=== PATIENT | female | born 1950 | race Caucasian/White ===

== ENCOUNTER 2016-09-29 17:29 | Inpatient (IN) ==
[2016-09-29 17:52] LABS: BASOPHILS # (AUTO) 0.1 K/uL (0-0.2); BASOPHILS % (AUTO) 0.4 % (0.0-3.0); EOSINOPHILS # (AUTO) 0.3 K/ul (0.0-0.7); EOSINOPHILS % (AUTO) 2.1 % (0.0-7.0); HEMATOCRIT 39.5 % (37.0-47.0); HEMOGLOBIN 13.4 g/dl (12.0-16.0); IMMATURE GRANULOCYTE % (AUTO) 0.5 % (0.0-5.0); LYMPHOCYTES # (AUTO) 1.6 K/uL (0.60-3.4); LYMPHOCYTES % (AUTO) 12.2 (10.0-50.0); MEAN CORPUSCULAR HEMOGLOBIN 35.4 pg (27.0-31.0); MEAN CORPUSCULAR HGB CONC 33.9 (31.8-35.4); MEAN CORPUSCULAR VOLUME 104.5 fl (81.0-99.0); MONOCYTES # (AUTO) 0.6 K/uL (0.4-2.0); MONOCYTES % (AUTO) 4.3 (0-10); NEUTROPHILS # (AUTO) 10.6 K/ul (2.0-6.9); NEUTROPHILS % (AUTO) 80.5; PLATELET COUNT 220 10^3/uL (140-440); RED BLOOD COUNT 3.78 10^6/ul (4.20-5.40); WHITE BLOOD COUNT 13.15 K/ul (4.6-10.2)
[2016-09-29 17:59] LABS: BILIRUBIN,URINE 1+ (NEGATIVE); KETONES,URINE 1+ (NEGATIVE); LEUKOCYTE ESTERASE ,URINE Negative (NEGATIVE); NITRITE,URINE Negative (NEGATIVE); PROTEIN,URINE Trace (NEGATIVE); URINE, BLOOD 1+ (NEGATIVE)
[2016-09-29 18:02] LABS: ADD URINE MICROSCOPIC YES
[2016-09-29] MEDS ORDERED: ZOFRAN 4 MG/2 ML IVP STA (18:07)
[2016-09-29] MEDS ORDERED: MORPHINE 4 MG/ML SYRINGE IVP STA (18:07)
[2016-09-29 18:08] LABS: PROTHROMBIN TIME 10.6 SEC (9.3-11.0)
[2016-09-29 18:09] LABS: ALBUMIN 3.4 g/dL (3.4-5.0); ALBUMIN/GLOBULIN RATIO 0.92; BILIRUBIN,TOTAL 0.55 mg/dL (0.00-1.20); BUN/CREATININE RATIO 17.02; CALCIUM 9.5 mg/dL (8.2-10.2); CREATININE 0.94 mg/dL (0.60-1.30); TOTAL PROTEIN 7.1 g/dL (5.8-8.1)
--- NOTE | 2016-09-29 18:24 | CT ---
EXAM: CT scan abdomen pelvis without contrast HISTORY: Left lower quadrant pain COMPARISON: None. FINDINGS: Contiguous axial images obtained from lung bases to the symphysis pubis without contrast utilizing 3-mm collimation. Sagittal and coronal reconstructions were imaged viewed.. Subpleural f ibrotic changes are noted at both lung bases. Calcified lymph nodes are seen within the right hilum . Benign granulomatous changes are seen within the spleen. The gallbladder is fluid filled without cholelithiasis. The liver, pancreas and adrenal glands have normal unenhanced CT appearance.. Ath erosclerotic changes are seen involving the aorta without aneurysm formation. Kidneys are unremarka ble.. Scattered diverticuli are seen in the rectosigmoid colon. Inflammatory changes are seen invo lving the descending colon which appears thickened compatible with colitis. Small amount free fluid seen in the dependent pelvis. IMPRESSION: Colitis is seen involving the descending colon. ASVD without aneurysm. Bibasilar subpleural fibrotic changes. Diverticulosis Small amount free fluid dependent pelvis.
--- NOTE | 2016-09-29 18:26 | ED.PDOC ---
General ED Provider: Dr. ABDULLAHI SAMAYOA Chief Complaint: Abdominal Pain Stated Complaint: abdominal pain Time Seen by Physician: 17:30 (pain LLQ X 4 DAYS LAST MEAL TODAY MORNING LAST BM 4 DAYS AGO ) Mode of Arrival: Walk-In Information Source: Patient Exam Limitations: No limitations Primary Care Provider: DIONNA CARDONA Nursing and Triage Documentation Reviewed and Agree: Yes (NEGATIVE VOMITING) GI Complaint Exam - Abdominal Pain Complaint/Exam Onset: Gradual Duration: 4 DAYS Symptoms Are: Resolved Initial Severity: Moderate Current Severity: Moderate Location of Pain: LLQ Character: Reports: Cramping Aggravating: Reports: None Alleviating: Reports: None Associated Signs and Symptoms: Reports: Cough, Decreased appetite, Nausea. Denies: Diaphoresis, Fever, Chest pain, Dizziness, Back pain, Constipation, Blood in stool, Dysuria, Urinary frequency, Decreased urine output, Vaginal bleeding, Vaginal discharge, Vomiting, Diarrhea, Sore throat, Decreased activity Review of Systems - Review Of Systems Constitutional: Reports: Malaise, Weakness Eyes: Reports: No symptoms Ears, Nose, Mouth, Throat: Reports: No symptoms Respiratory: Reports: No symptoms Cardiac: Reports: No symptoms GI: Reports: Abdominal pain, Rectal bleeding : Reports: No symptoms Musculoskeletal: Reports: No symptoms Skin: Reports: No symptoms Neurological: Reports: No symptoms Endocrine: Reports: No symptoms Hematologic/Lymphatic: Reports: No symptoms All Other Systems: Reviewed and Negative Past Medical History - Past Medical History Previously Healthy: No Endocrine: Reports: None Cardiovascular: Reports: Hypertension Respiratory: Reports: None Hematological: Reports: None Gastrointestinal: Reports: None Genitourinary: Reports: None Neuro/Psych: Reports: None Musculoskeletal: Reports: None Cancer: Reports: None Last Menstrual Period: n/a - Surgical History General Surgical History: Reports: Unknown - Family History Family History: Reports: Unknown - Social History Smoking Status: Current every day smoker Hx Substance Use: Yes Alcohol Screening: Occasionally Physical Exam - Physical Exam Appearance: Well-appearing, No pain distress, Well-nourished Eyes: TRUDY, EOMI, Conjunctiva clear ENT: Ears normal, Nose normal, Oropharynx normal Respiratory: Airway patent, Breath sounds clear, Breath sounds equal, Respirations nonlabored Cardiovascular: RRR, Pulses normal, No rub, No murmur GI/: Soft, Nontender, No masses, Bowel sounds normal, No Organomegaly Musculoskeletal: Normal strength, ROM intact, No edema, No calf tenderness Skin: Warm, Dry, Normal color Neurological: Sensation intact, Motor intact, Reflexes intact, Cranial nerves intact, Alert, Oriented Psychiatric: Affect appropriate, Mood appropriate Interpretation - Radiology Interpretation Radiology Interpretation By: Radiologist Critical Care Note - Critical Care Note Total Time (mins): 0 Course - Course Hematology/Chemistry: 09/29/16 17:40 03 17:40 Orders, Labs, Meds: Lab Review 09/29/16 17:40 WBC 13.15 H RBC 3.78 L Hgb 13.4 Hct 39.5 MCV 104.5 H MCH 35.4 H MCHC 33.9 RDW Coeff of Reginald 12.2 Plt Count 220 Immature Gran % (Auto) 0.5 Neut % (Auto) 80.5 Lymph % (Auto) 12.2 [place] % (Auto) 4.3 Eos % (Auto) 2.1 Baso % (Auto) 0.4 Immature Gran # (Auto) 0.1 Neut # 10.6 H Lymph # 1.6 [place] # 0.6 Eos # 0.3 Baso # 0.1 PT 10.6 INR 1.03 APTT 27.0 Sodium 141 Potassium 4.0 Chloride 106 Carbon Dioxide 26 Anion Gap 13.0 BUN 16 Creatinine 0.94 Estimated GFR (MDRD) 60.00 BUN/Creatinine Ratio 17.02 Glucose 100 Calcium 9.5 Total Bilirubin 0.55 AST 9 L ALT 8 L Alkaline Phosphatase 61 Total Protein 7.1 Albumin 3.4 Globulin 3.7 Albumin/Globulin Ratio 0.92 Amylase 22 L Lipase 9 Urine Color Yellow Urine Clarity Clear Urine pH 6.0 Ur Specific [place] 1.020 Urine Protein Trace Urine Glucose (UA) Negative Urine Ketones 1+ Urine Blood 1+ Urine Nitrite Negative Urine Bilirubin 1+ Urine Urobilinogen 0.2 Ur Leukocyte Esterase Negative Urine Microscopic RBC 2-5 Ur Squamous Epith Cells 0-2 Orders Category Date Time Status AMYLASE Stat LAB 09/29/16 17:40 Completed CBC W/ AUTO DIFF Stat LAB 09/29/16 17:40 Completed COMPREHENSIVE METABOLIC PANEL Stat LAB 09/29/16 17:40 Completed LIPASE Stat LAB 09/29/16 17:40 Completed PARTIAL THROMBOPLASTIN TIME Stat LAB 09/29/16 17:40 Completed PT WITH INR Stat LAB 09/29/16 17:40 Completed URINALYSIS C & S IF INDICATED Stat LAB 09/29/16 17:40 Completed Morphine Sulfate [Morphine 4 mg/ml Syringe] MEDS 09/29/16 18:07 Discontinued 4 mg IVP ONCE STA Ondansetron HCl/Pf [Zofran 4 mg/2 ml] MEDS 09/29/16 18:07 Discontinued 4 mg IVP ONCE STA CT ABDOMEN/PELVIS WO CONTRAST Stat RADS 09/29/16 17:55 Taken Medications Discontinued Medications Generic Name Dose Route Start Last Admin Trade Name Daisy PRN Reason Stop Dose Admin Morphine Sulfate 4 mg 09/29/16 18:07 09/29/16 18:15 Morphine 4 Mg/Ml Syringe IVP 09/29/16 18:08 4 mg ONCE STA Administration Ondansetron HCl 4 mg 09/29/16 18:07 09/29/16 18:13 Zofran 4 Mg/2 Ml IVP 09/29/16 18:08 4 mg ONCE STA Administration Vital Signs: Temp Pulse Resp BP Pulse Ox 09/29/16 17:30 98.3 F 81 20 168/90 H 96 Departure - Departure Time of Disposition: 19:00 Disposition: ADMITTED INPATIENT Discharge Problem: Abdominal pain, Abdominal pain, Colitis Instructions: Abdominal Pain (ED) Condition: Good Pt referred to PMD for follow-up: No Additional Instructions: Please call your Family Physician as soon as possible to schedule a follow-up appointment. Allergies/Adverse Reactions: Allergies codeine Adverse Reaction (Unverified 09/29/16 17:33) Sulfa (Sulfonamide Antibiotics) Adverse Reaction (Verified 09/29/16 17:33) Home Medications: Ambulatory Orders Furosemide [Lasix] 40 mg PO DAILY PRN 06/06/13 Hydrochlorothiazide 12.5 mg PO DAILY 06/06/13 Hydrocodone/Acetaminophen [Lortab 7.5-500 Tablet] 7.5 each PO Q6HR 06/06/13 Potassium Gluconate [Potassium] 1 tab PO DAILY 06/06/13 Bisoprolol Fumarate/Hctz [Bisoprolol-Hctz 5-6.25 mg Tab] 1 each PO DAILY Enalapril Maleate [Vasotec] 20 mg PO BID 01/20/14 Bupropion HCl [Wellbutrin] 75 mg PO DAILY 09/29/16 Clonazepam [Klonopin] 0.5 mg PO BID 09/29/16 Disposition Discussed With: Patient
[2016-09-29] MEDS ORDERED: ZOFRAN 4 MG/2 ML IVP SCH (19:30)
[2016-09-29] MEDS ORDERED: ZOFRAN 4 MG/2 ML ONE (19:37)
[2016-09-29] MEDS: SODIUM CHLORIDE 1,000 ML IV SCH (19:43)
[2016-09-29] MEDS: VASOTEC PO SCH (20:00)
[2016-09-29] MEDS: KLONOPIN PO SCH (20:00)
[2016-09-29 21:02] VITALS: BMI 30.9
[2016-09-29] MEDS ORDERED: FLAGYL 500 MG/100 ML 100 ML IV ONE (23:27)
[2016-09-30] MEDS ORDERED: ACETAMINOPHEN PO SCH
[2016-09-30] MEDS ORDERED: HYDROCODONE PO SCH
[2016-09-30] MEDS: NORCO 7.5-325 PO SCH ×5 (00:02→23:03)
[2016-09-30] MEDS: FLAGYL 500 MG/100 ML 500 MG in PREMIX 100 ML NS 1 BAG IV SCH ×5 (00:03→23:03)
[2016-09-30] MEDS ORDERED: FLAGYL 500 MG/100 ML 100 ML IV ONE (04:49)
[2016-09-30 05:08] LABS: BASOPHILS % (AUTO) 0.3 % (0.0-3.0); EOSINOPHILS # (AUTO) 0.2 K/ul (0.0-0.7); EOSINOPHILS % (AUTO) 1.7 % (0.0-7.0); HEMATOCRIT 34.2 % (37.0-47.0); HEMOGLOBIN 11.7 g/dl (12.0-16.0); IMMATURE GRANULOCYTE % (AUTO) 1.2 % (0.0-5.0); LYMPHOCYTES # (AUTO) 1.7 K/uL (0.60-3.4); LYMPHOCYTES % (AUTO) 12.6 (10.0-50.0); MEAN CORPUSCULAR HEMOGLOBIN 35.3 pg (27.0-31.0); MEAN CORPUSCULAR HGB CONC 34.2 (31.8-35.4); MEAN CORPUSCULAR VOLUME 103.3 fl (81.0-99.0); MONOCYTES # (AUTO) 1.2 K/uL (0.4-2.0); MONOCYTES % (AUTO) 8.4 (0-10); NEUTROPHILS # (AUTO) 10.4 K/ul (2.0-6.9); NEUTROPHILS % (AUTO) 75.8; PLATELET COUNT 208 10^3/uL (140-440); RED BLOOD COUNT 3.31 10^6/ul (4.20-5.40); WHITE BLOOD COUNT 13.71 K/ul (4.6-10.2)
[2016-09-30] MEDS: ZOFRAN 4 MG/2 ML IVP SCH ×5 (05:14→23:03)
[2016-09-30 05:28] LABS: ALBUMIN 2.7 g/dL (3.4-5.0); ALBUMIN/GLOBULIN RATIO 0.9; ANION GAP 11.7; BILIRUBIN,TOTAL 0.78 mg/dL (0.00-1.20); BUN/CREATININE RATIO 14.1; CALCIUM 8.5 mg/dL (8.2-10.2); CREATININE 0.78 mg/dL (0.60-1.30); POTASSIUM 3.7 mmol/L (3.5-5.10); TOTAL PROTEIN 5.7 g/dL (5.8-8.1)
[2016-09-30] MEDS ORDERED: NON-FORMULARY MEDICATION (Hydrochlorothiazide [Hydrochlorothiazide] 12.5 MG) PO SCH ×22 (09:00)
[2016-09-30] MEDS ORDERED: POTASSIUM GLUCONATE PO SCH (09:00)
[2016-09-30] MEDS: HYDROCHLOROTHIAZIDE PO SCH (09:10)
[2016-09-30] MEDS: KLONOPIN PO SCH ×2 (09:11→20:04)
[2016-09-30] MEDS: MICRO-K CAP PO SCH (09:11)
[2016-09-30] MEDS: VASOTEC PO SCH ×2 (09:11→20:04)
[2016-09-30] MEDS: ZIAC 5-6.25 MG PO SCH (09:12)
[2016-09-30] MEDS: DEMEROL 25 MG/ML SYRINGE IVP SCH ×3 (09:19→20:04)
[2016-09-30] MEDS: SODIUM CHLORIDE 1,000 ML IV SCH (11:03)
--- NOTE | 2016-09-30 11:28 | PCM.PROG ---
Attending Provider: ATTENDING PROVIDER: Dr. BALA LAMBERT DATE OF SERVICE: 09/30/16 SUBJECTIVE: This 65 year old WHITE/ F was hospitalized 09/29/16. The patient is admitted with colitis. The patient states she has had a rough night, is hurting in her abdomen. She states she is passing gas but hasn't had a bowel movement. She complains of nausea. REVIEW OF SYSTEMS: CONSTITUTIONAL: No fever, no chills. ENDOCRINE: No weight loss or weight gain. HEENT: No sinus drainage, no sore throat. CVS: No angina symptoms. No CHF symptoms. No palpitations. No atypical chest pain for CAD. No shortness of breath. RESPIRATORY: No cough, no hemoptysis. GI: Nausea. No melena. Abdominal tenderness all over. No vomiting. : No hematuria. No polyuria. SKIN: No rash. No wounds. MUSCULOSKELETAL: No arthritic pain. CHILD'S NURSE: No blackout, no dizziness. No headache. No double vision. PSYCHIATRIC: Not anxious; no depression. No suicidal thoughts. No homicidal thoughts. PHYSICAL EXAMINATION: GENERAL: Lying in bed in mild distress. VITAL SIGNS: Temperature 98.2 F, Pulse 84, Respiratory Rate 16, BP 124/60, Pulse Ox 98% HEENT: Normocephalic, atraumatic. Mucosa is dry, pallor positive. NECK: No JVP, no carotid bruit. No lymphadenopathy. CARDIAC: S1, S2, no S3. No murmur, gallop or regurgitation. LUNGS: Clear to auscultation. ABDOMEN: Soft, very tender all over. Bowel sounds sluggish. No rigidity, guarding or CVA tenderness. EXTREMITIES: No clubbing, cyanosis or edema. NEUROLOGIC: Awake, alert and oriented x3. LYMPHATIC: No palpable lymph nodes SKIN: Not dry. Intact. MUSCULOSKELETAL: No joint swelling. LAB REVIEW: 09/30/16 05:00 09/30/16 05:00 09/30/16 05:00: WBC 13.71 H, RBC 3.31 L, Hgb 11.7 L, Hct 34.2 L, MCV 103.3 H, MCH 35.3 H, MCHC 34.2, RDW Coeff of Reginald 12.3, Plt Count 208, Immature Gran % ( Auto) 1.2, Neut % (Auto) 75.8, Lymph % (Auto) 12.6, [place] % (Auto) 8.4, Eos % ( Auto) 1.7, Baso % (Auto) 0.3, Immature Gran # (Auto) 0.2, Neut # 10.4 H, Lymph # 1.7, [place] # 1.2, Eos # 0.2, Baso # 0.0, Sodium 139, Potassium 3.7, Chloride 106, Carbon Dioxide 25, Anion Gap 11.7, BUN 11, Creatinine 0.78, Estimated GFR ( MDRD) 74.00, BUN/Creatinine Ratio 14.10, Glucose 105, Calcium 8.5, Total Bilirubin 0.78, AST 9 L, ALT 7 L, Alkaline Phosphatase 58, Total Protein 5.7 L, Albumin 2.7 L, Globulin 3.0, Albumin/Globulin Ratio 0.90 ASSESSMENT: 1. Acute colitis 2. Hypertension 3. Rule out C. diff 4. Dyslipidemia 5. DJD spine 6. Osteoarthritis 7. COPD PLAN: 1. IV fluids. 2. Out of bed to chair with activity as tolerated. 3. NPO. 4. Demerol 25 mg q.6hr. Plan and coordination of the patient's care discussed in the presence of Offset Printing Pressmen and nurse. CONDITION: Stable SCRIBED BY: ADRIANNA CARBAJAL Leadership Intern scribed while in presence of service performed by Dr. BALA LAMBERT on 09/30/16 ([id number])
--- NOTE | 2016-09-30 13:46 | HP ---
DATE OF SERVICE: 09/29/16 REASON FOR HOSPITALIZATION: Abdominal pain HISTORY OF PRESENT ILLNESS: This patient is a 65 year old female who has been hurting in the belly, left side for three to four days, been having some bright red blood started with the diarrhea now having some bright blood. As pain is getting worse the patient came to the emergency room and seen by Dr. Murray. Blood pressure 168/90, WBC was 13.15. CT of abdominal and pelvis showed the acute colitis of the descending colon. At that time the patient is admitted to the hospital for the IV antibiotics and the treatment of acute colitis. The patient did not take his Z-pack one month before for the flu like symptoms. REVIEW OF SYSTEMS: CONSTITUTIONAL: No night sweats. Weakness and tiredness . No fever or chills. HEENT: Eyes: No visual changes. No eye pain. No eye discharge. ENT: No runny nose. No epistaxis. No sinus pain. No sore throat. No odynophagia. No ear pain. No congestion. RESPIRATORY: No cough, no congestion. No hemoptysis. CARDIOVASCULAR: No angina symptoms. No CHF symptoms. No atypical chest pain for CAD. No palpitations. No shortness of breath. GASTROINTESTINAL: Abdominal pain. Nausea and vomiting. Diarrhea, blood in the stools. No hematemesis. No hematochezia. GENITOURINARY: No urgency. No frequency. No dysuria. No hematuria. No obstructive symptoms. No discharge. No pain. No significant abnormal bleeding. MUSCULOSKELETAL: No musculoskeletal pain. No joint swelling. No arthritis. NEUROLOGICAL: No headache. No neck pain. No syncope. No seizures. No dizziness. PSYCHIATRIC: Not anxious. No depression. No suicidal thoughts. No homicidal thoughts. SKIN: No rash. No lesions. No wounds. ENDOCRINE: No unexplained weight loss. No weight gain. HEMATOLOGIC/LYMPHATIC: No anemia. No purpura. No petechiae. No prolonged or excessive bleeding. No palpable lymph nodes. PERSONAL/FAMILY/SOCIAL HISTORY: The patient does smoke and drinks occasionally. PAST MEDICAL/SURGICAL PROBLEMS: Hypertension Dyslipidemia Nicotine use Hysterectomy MEDICATIONS: Potassium Lortab Lasix Vasotec Bisoprolol Wellbutrin Klonopin ALLERGIES: Codeine Sulfa PHYSICAL EXAMINATION: VITAL SIGNS: Blood pressure 168/90, respiratory rate 20, heart rate 81, temperature 98.3 and saturation is 96% GENERAL: The patient is lying in the bed in pain with tenderness in the belly. HEENT: Head normocephalic, atraumatic. Eyes: Extraocular muscles are intact. Pupils are equal, round and reactive to light and accommodation. Ears: No lesions. Nose appeared normal. Throat: No exudate or erythema. Mucosa dry. Pallor positive. NECK: Supple. No JVD, no carotid bruit. No lymphadenopathy or thyromegaly. LUNGS: Clear to auscultation. Percussion note normal. Chest symmetrical. HEART: S1, S2, no S3. No murmurs. No cyanosis or clubbing. No ascites. Pulses: Dorsalis pedis and posterior tibial pulses +1 to +2 both sides. ABDOMEN: Soft. Left upper quadrant tender. Bowel sounds Hypoactive. No CVA tenderness. No mass felt. EXTREMITIES: No edema. Full range of motion of all extremities, equal. NEUROLOGIC: No focal deficit. Cranial nerves II through XII are grossly intact. No headache, no double vision or headache. SKIN: Not dry. Intact. Turgor - normal. LYMPHATIC: No palpable lymph nodes/no lymphedema. MUSCULOSKELETAL: Normal joints with no swelling. Muscle tone is normal. LABS: WBC 13.15, hgb 7.4, hct 39.5, plt count 320, PT/INR are normal. Sodium 141, potassium 4.0, chloride 106, bicarb 26, BUN 16 and creatinine 0.94. U/A is negative. CAT Scan shows the acute colitis of descending colon. ASSESSMENT: 1. Acute colitis, rule out C-Diff 2. Lower GI bleed mostly from the diverticulosis 3. Hypertension 4. Dyslipidemia 5. Nicotine use PLAN: 1. Admit patient to the regular floor 2. CBC and CMP today and daily 3. NPO 4. Flagyl 500mg Q 8 hours 5. Stool for C-Diff 6. Demerol for the pain 7. Continue home medication TIME SPENT: More than 55 minutes. MTDD
[2016-09-30] MEDS: PROTONIX IV 40 MG in SODIUM CHLORIDE 100 ML IV SCH (20:04)
[2016-10-01] MEDS: DEMEROL 25 MG/ML SYRINGE IVP SCH ×4 (02:02→20:19)
[2016-10-01] MEDS: SODIUM CHLORIDE 1,000 ML IV SCH (04:32)
[2016-10-01] MEDS: ZOFRAN 4 MG/2 ML IVP SCH ×3 (05:01→18:09)
[2016-10-01] MEDS: NORCO 7.5-325 PO SCH ×3 (05:01→18:09)
[2016-10-01] MEDS: FLAGYL 500 MG/100 ML 500 MG in PREMIX 100 ML NS 1 BAG IV SCH ×5 (05:01→23:46)
[2016-10-01 05:02] LABS: BASOPHILS % (AUTO) 0.4 % (0.0-3.0); EOSINOPHILS # (AUTO) 0.3 K/ul (0.0-0.7); EOSINOPHILS % (AUTO) 3.9 % (0.0-7.0); HEMATOCRIT 31.4 % (37.0-47.0); HEMOGLOBIN 10.6 g/dl (12.0-16.0); IMMATURE GRANULOCYTE % (AUTO) 0.7 % (0.0-5.0); LYMPHOCYTES % (AUTO) 25.5 (10.0-50.0); MEAN CORPUSCULAR HEMOGLOBIN 35.2 pg (27.0-31.0); MEAN CORPUSCULAR HGB CONC 33.8 (31.8-35.4); MEAN CORPUSCULAR VOLUME 104.3 fl (81.0-99.0); MONOCYTES # (AUTO) 0.6 K/uL (0.4-2.0); MONOCYTES % (AUTO) 8.1 (0-10); NEUTROPHILS # (AUTO) 4.7 K/ul (2.0-6.9); NEUTROPHILS % (AUTO) 61.4; PLATELET COUNT 190 10^3/uL (140-440); RED BLOOD COUNT 3.01 10^6/ul (4.20-5.40); WHITE BLOOD COUNT 7.66 K/ul (4.6-10.2)
[2016-10-01 05:43] LABS: ALBUMIN 2.5 g/dL (3.4-5.0); ALBUMIN/GLOBULIN RATIO 0.86; ANION GAP 11.7; BILIRUBIN,TOTAL 0.61 mg/dL (0.00-1.20); BUN/CREATININE RATIO 15.18; CALCIUM 8.3 mg/dL (8.2-10.2); CREATININE 0.79 mg/dL (0.60-1.30); POTASSIUM 3.7 mmol/L (3.5-5.10); TOTAL PROTEIN 5.4 g/dL (5.8-8.1)
[2016-10-01] MEDS: PROTONIX IV 40 MG in SODIUM CHLORIDE 100 ML IV SCH ×2 (09:18→20:15)
[2016-10-01] MEDS: AZACTAM 1 GM in SODIUM CHLORIDE 100 ML IV SCH ×4 (09:18→21:30)
[2016-10-01] MEDS: ZIAC 5-6.25 MG PO SCH (09:19)
[2016-10-01] MEDS: VASOTEC PO SCH ×2 (09:20→20:16)
[2016-10-01] MEDS: KLONOPIN PO SCH ×2 (09:20→20:16)
[2016-10-01] MEDS: HYDROCHLOROTHIAZIDE PO SCH (09:20)
[2016-10-01] MEDS: MICRO-K CAP PO SCH (09:21)
--- NOTE | 2016-10-01 11:58 | PCM.PROG ---
Attending Provider: ATTENDING PROVIDER: Dr. BALA LAMBERT DATE OF SERVICE: 10/01/16 SUBJECTIVE: This 65 year old WHITE/ F was hospitalized 09/29/16. The patient still complains of left lower quadrant tenderness. The patient had a bloody bowel movement yesterday. No nausea or vomiting. Medication is helping. REVIEW OF SYSTEMS: CONSTITUTIONAL: No fever, no chills. ENDOCRINE: No weight loss or weight gain. HEENT: No sinus drainage, no sore throat. CVS: No angina symptoms. No CHF symptoms. No palpitations. No atypical chest pain for CAD. No shortness of breath. RESPIRATORY: No cough, no hemoptysis. GI: Left lower quadrant tenderness. No melena. No nausea, no vomiting. : No hematuria. No polyuria. SKIN: No rash. No wounds. MUSCULOSKELETAL: No pain. FRUIT ROOM HAND: No blackout, no dizziness. No headache. No double vision. PSYCHIATRIC: Not anxious; no depression. No suicidal thoughts. No homicidal thoughts. PHYSICAL EXAMINATION: GENERAL: Lying in bed in no distress. VITAL SIGNS: Temperature 97.8 F, Pulse 59, Respiratory Rate 12, BP 106/65, Pulse Ox 99% HEENT: Normocephalic, atraumatic. Mucosa is dry, pallor positive. NECK: No JVP, no carotid bruit. No lymphadenopathy. CARDIAC: S1, S2, no S3. No murmur, gallop or regurgitation. LUNGS: Clear to auscultation. ABDOMEN: Soft. Left lower quadrant tenderness. Bowel sounds are sluggish. No rigidity, guarding or CVA tenderness. EXTREMITIES: No clubbing, cyanosis or edema. NEUROLOGIC: Awake, alert and oriented x3. LYMPHATIC: No palpable lymph nodes SKIN: Not dry. Intact. MUSCULOSKELETAL: No joint swelling. LAB REVIEW: 10/01/16 04:05 10/01/16 04:05 10/01/16 04:05: WBC 7.66 D, RBC 3.01 L, Hgb 10.6 L, Hct 31.4 L, MCV 104.3 H, MCH 35.2 H, MCHC 33.8, RDW Coeff of Reginald 12.2, Plt Count 190, Immature Gran % ( Auto) 0.7, Neut % (Auto) 61.4, Lymph % (Auto) 25.5, [place] % (Auto) 8.1, Eos % ( Auto) 3.9, Baso % (Auto) 0.4, Immature Gran # (Auto) 0.1, Neut # 4.7, Lymph # 2.0, [place] # 0.6, Eos # 0.3, Baso # 0.0, Sodium 140, Potassium 3.7, Chloride 107 , Carbon Dioxide 25, Anion Gap 11.7, BUN 12, Creatinine 0.79, Estimated GFR ( MDRD) 73.00, BUN/Creatinine Ratio 15.18, Glucose 72 L, Calcium 8.3, Total Bilirubin 0.61, AST 10 L, ALT 6 L, Alkaline Phosphatase 45 L, Total Protein 5.4 L, Albumin 2.5 L, Globulin 2.9, Albumin/Globulin Ratio 0.86 ASSESSMENT: 1. Acute colitis, left descending colon rule out C. diff 2. Anemia 3. Lower GI bleed 4. Hypertension 5. Dyslipidemia 6. DJD spine 7. Osteoarthritis 8. COPD PLAN: 1. Have the patient ambulate 2. Continue Flagyl 3. Continue IV Demerol, Protonix and Zofran 4. Add Azactam 1 gm q.8hr IV Plan and coordination of the patient's care discussed in the presence of Extrusion Die Coordinator and nurse. CONDITION: Stable SCRIBED BY: ADRIANNA CARBAJAL Ward Clerk scribed while in presence of service performed by Dr. BALA LAMBERT on 10/01/16 ([id number])
[2016-10-01] MEDS ORDERED: AZACTAM ONE (15:06)
[2016-10-01] MEDS ORDERED: SODIUM CHLORIDE 100 ML IV ONE (15:10)
[2016-10-02] MEDS: NORCO 7.5-325 PO SCH ×5 (00:47→23:43)
[2016-10-02] MEDS: ZOFRAN 4 MG/2 ML IVP SCH ×3 (00:48→12:54)
[2016-10-02] MEDS: SODIUM CHLORIDE 1,000 ML IV SCH ×2 (02:35→22:55)
[2016-10-02] MEDS: DEMEROL 25 MG/ML SYRINGE IVP SCH ×3 (03:54→15:00)
[2016-10-02] MEDS: AZACTAM 1 GM in SODIUM CHLORIDE 100 ML IV SCH ×2 (04:00→13:45)
[2016-10-02] MEDS: FLAGYL 500 MG/100 ML 500 MG in PREMIX 100 ML NS 1 BAG IV SCH ×2 (05:48→12:54)
[2016-10-02 06:19] LABS: BASOPHILS # (AUTO) 0.1 K/uL (0-0.2); BASOPHILS % (AUTO) 0.8 % (0.0-3.0); EOSINOPHILS # (AUTO) 0.3 K/ul (0.0-0.7); EOSINOPHILS % (AUTO) 4.2 % (0.0-7.0); HEMATOCRIT 31.5 % (37.0-47.0); HEMOGLOBIN 10.7 g/dl (12.0-16.0); IMMATURE GRANULOCYTE % (AUTO) 0.8 % (0.0-5.0); LYMPHOCYTES # (AUTO) 1.8 K/uL (0.60-3.4); LYMPHOCYTES % (AUTO) 28.5 (10.0-50.0); MEAN CORPUSCULAR HEMOGLOBIN 35.3 pg (27.0-31.0); MONOCYTES # (AUTO) 0.6 K/uL (0.4-2.0); MONOCYTES % (AUTO) 8.9 (0-10); NEUTROPHILS # (AUTO) 3.5 K/ul (2.0-6.9); NEUTROPHILS % (AUTO) 56.8; PLATELET COUNT 237 10^3/uL (140-440); RED BLOOD COUNT 3.03 10^6/ul (4.20-5.40); WHITE BLOOD COUNT 6.21 K/ul (4.6-10.2)
[2016-10-02 06:45] LABS: ALBUMIN 2.5 g/dL (3.4-5.0); ALBUMIN/GLOBULIN RATIO 0.89; ANION GAP 7.7; BILIRUBIN,TOTAL 0.25 mg/dL (0.00-1.20); BUN/CREATININE RATIO 15.38; CALCIUM 8.2 mg/dL (8.2-10.2); CREATININE 0.78 mg/dL (0.60-1.30); POTASSIUM 3.7 mmol/L (3.5-5.10); TOTAL PROTEIN 5.3 g/dL (5.8-8.1)
[2016-10-02] MEDS ORDERED: MIRALAX PO STA (08:39)
[2016-10-02] MEDS ORDERED: DECADRON 4 MG/ML SDV IM STA (08:40)
[2016-10-02] MEDS: HYDROCHLOROTHIAZIDE PO SCH (09:13)
[2016-10-02] MEDS: ZIAC 5-6.25 MG PO SCH (09:13)
[2016-10-02] MEDS: VASOTEC PO SCH ×2 (09:14→20:29)
[2016-10-02] MEDS: MICRO-K CAP PO SCH (09:14)
[2016-10-02] MEDS: PROTONIX IV 40 MG in SODIUM CHLORIDE 100 ML IV SCH (09:15)
[2016-10-02] MEDS: KLONOPIN PO SCH ×2 (09:32→20:30)
--- NOTE | 2016-10-02 10:27 | PCM.PROG ---
Attending Provider: ATTENDING PROVIDER: Dr. BALA LAMBERT DATE OF SERVICE: 10/02/16 SUBJECTIVE: This 65 year old WHITE/ F was hospitalized 09/29/16. The patient states she hasn't had a bowel movement. She is complaining of a sore left great toe which is red and tender at the base, most likely gout. No nausea or vomiting. She states her abdominal pain is less. REVIEW OF SYSTEMS: CONSTITUTIONAL: No fever, no chills. ENDOCRINE: No weight loss or weight gain. HEENT: No sinus drainage, no sore throat. CVS: No angina symptoms. No CHF symptoms. No palpitations. No atypical chest pain for CAD. No shortness of breath. RESPIRATORY: No cough, no hemoptysis. GI: Constipation. No melena. Less abdominal pain. No nausea, no vomiting. : No hematuria. No polyuria. SKIN: No rash. No wounds. MUSCULOSKELETAL: Painful left great toe. INSPECTOR FIBROUS WALLBOARD: No blackout, no dizziness. No headache. No double vision. PSYCHIATRIC: Not anxious; no depression. No suicidal thoughts. No homicidal thoughts. PHYSICAL EXAMINATION: GENERAL: Lying in bed in no distress. VITAL SIGNS: Temperature 97.9 F, Pulse 54, Respiratory Rate 16, BP 96/61, Pulse Ox 97% HEENT: Normocephalic, atraumatic. Mucosa is dry, pallor positive. NECK: No JVP, no carotid bruit. No lymphadenopathy. CARDIAC: S1, S2, no S3. No murmur, gallop or regurgitation. LUNGS: Clear to auscultation. ABDOMEN: Soft, non-tender. Bowel sounds active. No rigidity, guarding or CVA tenderness. EXTREMITIES: No clubbing, cyanosis or edema. Painful left great toe. NEUROLOGIC: Awake, alert and oriented x3. LYMPHATIC: No palpable lymph nodes SKIN: Not dry. Intact. MUSCULOSKELETAL: No joint swelling. LAB REVIEW: 10/02/16 06:15 10/02/16 06:15 10/02/16 06:15: WBC 6.21, RBC 3.03 L, Hgb 10.7 L, Hct 31.5 L, MCV 104.0 H, MCH 35.3 H, MCHC 34.0, RDW Coeff of Reginald 12.1, Plt Count 237, Immature Gran % (Auto) 0.8, Neut % (Auto) 56.8, Lymph % (Auto) 28.5, [place] % (Auto) 8.9, Eos % (Auto) 4.2, Baso % (Auto) 0.8, Immature Gran # (Auto) 0.1, Neut # 3.5, Lymph # 1.8, [place] # 0.6, Eos # 0.3, Baso # 0.1, Sodium 140, Potassium 3.7, Chloride 109 H, Carbon Dioxide 27, Anion Gap 7.7, BUN 12, Creatinine 0.78, Estimated GFR (MDRD) 74.00, BUN/Creatinine Ratio 15.38, Glucose 96, Calcium 8.2, Total Bilirubin 0.25 , AST 9 L, ALT 7 L, Alkaline Phosphatase 41 L, Total Protein 5.3 L, Albumin 2.5 L, Globulin 2.8, Albumin/Globulin Ratio 0.89 ASSESSMENT: 1. Left great toe painful with redness and swelling 2. Acute colitis, left descending colon, C. diff negative 3. Anemia 4. Lower GI bleed 5. Hypertension 6. Dyslipidemia 7. DJD spine 8. Osteoarthritis 9. COPD PLAN: 1. 1 cc Decadron 2. Have the patient ambulate 3. Uric acid level 4. X-ray of left foot 5. Miralax for the constipation Plan and coordination of the patient's care discussed in the presence of Track Fitter and nurse. CONDITION: Stable SCRIBED BY: ADRIANNA CARBAJAL Artificial Inseminator scribed while in presence of service performed by Dr. BALA LAMBERT on 10/02/16 ([id number])
[2016-10-02] MEDS ORDERED: PROTONIX PO PRN (14:38)
--- NOTE | 2016-10-02 14:38 | DI ---
EXAM: Left foot three views HISTORY: Pain, swelling, redness COMPARISON: None FINDINGS: No fracture dislocation. Mild osteoarthritis first MTP joint with small osteophyte forma tion. The joints are normal. Mild posterior calcaneal enthesopathy. IMPERSSION: 1. No fracture or dislocation. 2. Mild osteoarthritis first MTP joint.
[2016-10-02] MEDS ORDERED: ZOFRAN 4 MG/2 ML IVP PRN (16:29)
[2016-10-02] MEDS ORDERED: DEMEROL 25 MG/ML SYRINGE IVP PRN (16:29)
[2016-10-02] MEDS: FLAGYL PO SCH (20:29)
[2016-10-03] MEDS: NORCO 7.5-325 PO SCH (05:47)
[2016-10-03] MEDS: FLAGYL PO SCH (05:47)
[2016-10-03 05:58] VITALS: BP 118/68; TEMP 97.5
[2016-10-03 06:10] LABS: BASOPHILS % (AUTO) 0.4 % (0.0-3.0); EOSINOPHILS % (AUTO) 0.6 % (0.0-7.0); HEMATOCRIT 30.2 % (37.0-47.0); HEMOGLOBIN 10.3 g/dl (12.0-16.0); IMMATURE GRANULOCYTE % (AUTO) 1.3 % (0.0-5.0); LYMPHOCYTES # (AUTO) 1.6 K/uL (0.60-3.4); MEAN CORPUSCULAR HEMOGLOBIN 35.4 pg (27.0-31.0); MEAN CORPUSCULAR HGB CONC 34.1 (31.8-35.4); MEAN CORPUSCULAR VOLUME 103.8 fl (81.0-99.0); MONOCYTES # (AUTO) 0.6 K/uL (0.4-2.0); MONOCYTES % (AUTO) 8.4 (0-10); NEUTROPHILS # (AUTO) 4.4 K/ul (2.0-6.9); NEUTROPHILS % (AUTO) 65.3; PLATELET COUNT 225 10^3/uL (140-440); RED BLOOD COUNT 2.91 10^6/ul (4.20-5.40); WHITE BLOOD COUNT 6.67 K/ul (4.6-10.2)
[2016-10-03 06:37] LABS: ALBUMIN 2.7 g/dL (3.4-5.0); ALBUMIN/GLOBULIN RATIO 0.93; ANION GAP 10.9; BILIRUBIN,TOTAL 0.15 mg/dL (0.00-1.20); BUN/CREATININE RATIO 19.23; CALCIUM 8.6 mg/dL (8.2-10.2); CREATININE 0.78 mg/dL (0.60-1.30); POTASSIUM 3.9 mmol/L (3.5-5.10); TOTAL PROTEIN 5.6 g/dL (5.8-8.1)
[2016-10-03] MEDS: MICRO-K CAP PO SCH (08:27)
[2016-10-03] MEDS: HYDROCHLOROTHIAZIDE PO SCH (08:27)
[2016-10-03] MEDS: ZIAC 5-6.25 MG PO SCH (08:27)
[2016-10-03] MEDS: VASOTEC PO SCH (08:27)
[2016-10-03] MEDS: KLONOPIN PO SCH (08:27)
--- NOTE | 2016-10-03 14:33 | PN ---
DATE OF SERVICE: 10/03/16 SUBJECTIVE: This is a 65-year-old female admitted with acute colitis. C. diff was negative. She is feeling a lot better. She was started on regular diet, tolerating well. No fever, no chills. REVIEW OF SYSTEMS: CONSTITUTIONAL: No fever, no chills. HEENT: Normal. ENDOCRINE: No weight gain, no weight loss. CVS: No angina symptoms. No CHF symptoms. No palpitations. No atypical chest pain for CAD. No shortness of breath. No PND, no orthopnea. RESPIRATORY: No cough, no hemoptysis. GI: No nausea, no vomiting. No abdominal pain. : No hematuria. No polyuria. MUSCULOSKELETAL:. No joint swelling. PSYCHIATRIC: Not anxious. No depression. No suicidal thoughts. No homicidal thoughts. SKIN: Intact. No rash. PHYSICAL EXAMINATION: V/S: BP 118/68, respiratory rate 16, heart rate 62, temperature 97.5 HEENT: Normocephalic, atraumatic. Ears, eyes, nose and throat normal. NECK: Supple. No JVD, no carotid bruit. No lymphadenopathy. LUNGS: Clear to auscultation. No rales or rhonchi. HEART: S1, S2 normal. No S3. No murmur, gallop or regurgitation. ABDOMEN: Soft, nontender. Bowel sounds active. No rigidity. No rebound or guarding. No CVA tenderness. EXTREMITIES: No clubbing, cyanosis or pedal edema. MUSCULOSKELETAL: No joint swelling. NEUROLOGIC: Awake, alert, oriented times three. No focal deficit. LYMPHATIC: No lymph nodes palpable. SKIN: Intact. LABS: White count 6.67, hemoglobin 10.3, hematocrit 30.2, platelet count 225. Sodium 142, potassium 3.9, chloride 111, bicarb 24, BUN 15, creatinine 0.78, glucose 120. ASSESSMENT: 1. ACUTE SIGMOID COLITIS, WHICH IS BETTER 2. HISTORY OF DYSLIPIDEMIA 3. HYPERTENSION 4. NICOTINE USE 5. ANEMIA SECONDARY TO LOWER GI BLEED FROM DIVERTICULOSIS BUT HEMOGLOBIN IS STABLE AT 10.3 PLAN: 1. Discharge the patient home 2. Soft diet for 7 more days 3. Flagyl 500 mg t.i.d. for 5 days 4. Cipro 250 mg twice a day for 5 more days 5. Protonix 40 mg p.o. daily 6. Outpatient GI consultation is being discussed, verbalized understanding. 7. In case the pain gets worse, she can come back again. TIME SPENT: More than 30 minutes DACIA
--- NOTE | 2016-10-30 13:29 | DS ---
DATE OF SERVICE: 10/03/16 FINAL DIAGNOSIS: 1. Acute Sigmoid Colonitis 2. History Dyslipidemia 4. Hypertension 5. Nicotine use 6. Anemia secondary to the lower GI bleed from the acute colitis 7. Hysterectomy 8. Tonsillectomy LAST VITALS: Temperature 97.5, pulse 62, respiratory rate 16, blood pressure 118/68 and pulse ox 98%. DISCHARGE INSTRUCTIONS: Discharge home today. Continue medications per nursing sheet. Followup with Dr. Sandhu on 10/10/16. MEDICATIONS AT DISCHARGE: Medora Bisoprolol Klonopin Vasotec Hydrochlorothiazide Lasix Micro-K cap ALLERGIES: Codeine NEW PRESCRIPTIONS: Flagyl 500mg take one by mouth every 8 hours for 5 days. Take until gone Cipro 250mg take one by mouth 2 times a day for 5 days. Take until gone. Protonix 40mg take one by mouth daily Over the counter iron tablets. DIET INSTRUCTIONS: High fiber diet. ACTIVITY: Gradually resume activity as tolerated. SMOKING: N/A DISEASE SPECIFIC EDUCATION: Diverticulitis/Colitis and Diet Risk of abscess Lower GI Bleed Anemia and advised to take iron pills. Increased oral fluid Probiotics and yogurt. HOSPITAL COURSE: Natty Max who is a 65 year old female came to the emergency room with the severe abdominal pain, nausea and vomiting. Initial WBC was 13,000, BUN and Creatinine was normal. CT of abdomen and pelvis showed the acute diverticulitis. The acute colitis is seen in more in the descending colon. Bibasilar subpleural fibrotic changes, diverticulosis and the small amount fo the free fluid was seen. At that time the patient was put with the colitis diagnosis. The patient was put on Flagyl and Azactam. Meperidine was given for the pain. After two days the patient was complaining that she is having pain in the foot. X-ray of the foot was done, left foot. Swelling was there in the left and her uric acid level was 7.5, steroids were given which did help her. Gradually WBC was normal, hgb dropped from 13.4 to 10.3 and then stabilized. As patient was up and about and was able to tolerate the clear liquid diet and advanced as tolerated so we discussed with the patient in detail about the colitis, diverticulosis, risk of diverticulosis and the diverticulitis. High fiber diet and risk of constipation been discussed and verbalized understanding. TIME SPENT: More than 45 minutes. MTDD
== END 2016-10-03 11:28 | disposition home or self-care (01) | DRG 392 ==
LOC: ED 17:29 → MEDSURG B 18:38
PROVIDERS: ADMIT Emergency Medicine; ATTEND Emergency Medicine
DX: K52.9 Noninfective gastroenteritis and colitis, unspecified (principal); K62.5 Hemorrhage of anus and rectum; D62 Acute posthemorrhagic anemia; K57.32 Diverticulitis of large intestine without perforation or abscess without bleeding; R10.32 Left lower quadrant pain; I10 Essential (primary) hypertension; M79.675 Pain in left toe(s); J44.9 Chronic obstructive pulmonary disease, unspecified; E78.5 Hyperlipidemia, unspecified; M47.9 Spondylosis, unspecified; F17.200 Nicotine dependence, unspecified, uncomplicated; Z79.899 Other long term (current) drug therapy; Z79.891 Long term (current) use of opiate analgesic
CPT/HCPCS: 36415; 80053; 81001; 82150; 83690; 84550; 85025; 85610; 85730; 87493; 96374; 96375; 99283

== ENCOUNTER 2017-12-16 17:52 | Emergency (ER) ==
[2017-12-16 18:10] VITALS: BP 122/73; TEMP 100.6; BMI 29.7
--- NOTE | 2017-12-16 18:24 | ED.PDOC ---
General ED Provider: Dr. ABDULLAHI SAMAYOA Chief Complaint: Foot Pain/Injury Stated Complaint: left big toe pain Time Seen by Physician: 18:00 (seen with TIFFANIE) Mode of Arrival: Wheelchair Information Source: Patient Exam Limitations: No limitations Primary Care Provider: DIONNA CARDONA Referred to ED by: Other (has history of gout) Nursing and Triage Documentation Reviewed and Agree: Yes (no injury reported ) Reviewed sepsis parameters & appropriate labs ordered?: Yes System Inflammatory Response Syndrome: Not Applicable Sepsis Protocol: For patient's 13 years and over: Temp is 96.8 and below OR 101 and greater Pulse >90 BPM Resp >20/minute Acutely Altered Mental Status Are patient's symptoms suggestive of a new infection, such as: -Pneumonia -Skin, Soft Tissue -Endocarditis -UTI -Bone, Joint Infection -Implantable Device -Acute Abdominal Infection -Wound Infection -Meningitis -Blood Stream Catheter Infection -Unknown System Inflammatory Response Syndrome: Not Applicable Musculoskeletal Complaint Exam - Ankle/Foot Complaint/Exam Location of Injury: Reports: Left, Toe #1 Mechanism of Injury: Reports: No known trauma Onset/Duration: 1DAY Symptoms Are: Reports: Still present Onset of Pain: Reports: Hours Initial Severity: Moderate Current Severity: Moderate Location: Reports: Discrete Character: Reports: Aching Alleviating: Reports: None Aggravating: Reports: Movement, Weight bearing, Prolonged standing Able to Bear Weight: Yes Associated Signs and Symptoms: Reports: Swelling, Redness (SEE PHOTOS). Denies : Bruising, Fever, Weakness, Numbness, Tingling Related History: Reports: Similar episode Gout Risk Factors: Reports: None Related Surgical History: Reports: None Lower Extremity Findings: Present: Swelling Achilles Tendon Abnormality: No Differential Diagnosis: Closed Fracture Review of Systems - Review Of Systems Constitutional: Reports: No symptoms Eyes: Reports: No symptoms Ears, Nose, Mouth, Throat: Reports: No symptoms Respiratory: Reports: No symptoms Cardiac: Reports: No symptoms GI: Reports: No symptoms : Reports: No symptoms Musculoskeletal: Reports: Other (LEFT FOOT PAIN) Skin: Reports: No symptoms Neurological: Reports: No symptoms Endocrine: Reports: No symptoms Hematologic/Lymphatic: Reports: No symptoms All Other Systems: Reviewed and Negative Past Medical History - Past Medical History Previously Healthy: No Endocrine: Reports: None Cardiovascular: Reports: Hypertension Respiratory: Reports: None Hematological: Reports: None Gastrointestinal: Reports: None Genitourinary: Reports: None Neuro/Psych: Reports: None Musculoskeletal: Reports: None Cancer: Reports: None Last Menstrual Period: unknown - Surgical History General Surgical History: Reports: Unknown - Family History Family History: Reports: Unknown - Social History Smoking Status: Current every day smoker, Heavy tobacco smoker Hx Substance Use: No Alcohol Screening: Occasionally Physical Exam - Physical Exam Appearance: Well-appearing, No pain distress, Well-nourished Eyes: TRUDY, EOMI, Conjunctiva clear ENT: Ears normal, Nose normal, Oropharynx normal Respiratory: Airway patent, Breath sounds clear, Breath sounds equal, Respirations nonlabored Cardiovascular: RRR, Pulses normal, No rub, No murmur GI/: Soft, Nontender, No masses, Bowel sounds normal, No Organomegaly Musculoskeletal: Limited ROM (FIRST LEFT TOE ) Skin: Warm, Dry, Normal color Neurological: Sensation intact, Motor intact, Reflexes intact, Cranial nerves intact, Alert, Oriented Psychiatric: Affect appropriate, Mood appropriate Critical Care Note - Critical Care Note Total Time (mins): 0 Course - Course Vital Signs: Temp Pulse Resp BP Pulse Ox 12/16/17 17:54 100.6 F H 113 H 20 122/73 96 Departure - Departure Time of Disposition: 19:00 Disposition: HOME SELF-CARE Discharge Problem: Gout attack Qualifiers: Gout site: toe Gout etiology: unspecified cause Laterality: left Qualified Code (s): M10.9 - Gout, unspecified Instructions: Low Purine Diet (ED) Condition: Good Pt referred to PMD for follow-up: Yes IPMP verified?: No Allergies/Adverse Reactions: Allergies codeine Adverse Reaction (Verified 12/16/17 18:06) Sulfa (Sulfonamide Antibiotics) Adverse Reaction (Verified 12/16/17 18:06) Home Medications: Ambulatory Orders Furosemide [Lasix] 40 mg PO DAILY PRN 06/06/13 Hydrocodone/Acetaminophen [Lortab 7.5-500 Tablet] 7.5 each PO Q6HR 06/06/13 Potassium Gluconate [Potassium] 1 tab PO DAILY 06/06/13 Enalapril Maleate [Vasotec] 20 mg PO BID 01/20/14 Clonazepam [Klonopin] 0.5 mg PO BID 09/29/16
[2017-12-16] MEDS ORDERED: TORADOL IM STA (18:27)
[2017-12-16] MEDS ORDERED: DECADRON 4 MG/ML SDV IM STA (18:27)
== END 2017-12-16 19:45 | disposition home or self-care (01) ==
LOC: ED 17:52
DX: M10.9 Gout, unspecified (principal); F17.210 Nicotine dependence, cigarettes, uncomplicated
CPT/HCPCS: 36415; 80053; 84550; 96372; 99282